=== PATIENT | female | born 1985 | race American Indian/Alaskan Native ===

== ENCOUNTER 2021-01-14 16:41 | Inpatient (IN) | payer BC, OTHER ==
[~2021-01-14] VITALS: Ht 165.1 cm; Wt 129.2 kg
[~2021-01-14 16:41] MED LIST: AMBIEN5 MG PO; CEPHALEXIN500 MG PO; CYCLOBENZAPRINE10 MG PO; PROVENTIL HFA6.7 GM INH; VITAFOL-OB+DHA1 EACH PO; ZOFRAN ODT4 MG PO
--- OUTSIDE RECORDS SUMMARY | 2021-01-14 16:44 | XMS ---
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 Issac has no Care Guidelines for this patient. Abelardo VISIT COUNT (12 MO.) 1 [facility] TOTAL 1 NOTE: Visits indicate total known visits. ED/UCC VISIT TRACKING (12 MO.) 01/14/2021 16:42 [facility] TYPE: Emergency COMPLAINT: - VOMITING,DIARRHEA,WEAKNESS INPATIENT VISIT TRACKING (12 MO.) No inpatient visits to display in this time frame [email or web address]
[2021-01-14] MEDS ORDERED: FLUTICASONE PRO16 GM NAS (18:38)
[2021-01-14] MEDS ORDERED: LIDOCAINE1 EACH TOP (18:38)
[2021-01-15] MEDS ORDERED: PROAIR HFA8.5 GM INH (09:36)
[2021-01-16] MEDS ORDERED: CLARITIN10 MG PO (10:07)
[2021-01-16] MEDS ORDERED: SUDOGEST60 MG PO (10:07)
[2021-01-20] MEDS ORDERED: CEFIXIME400 MG PO (13:08)
[2021-01-20] MEDS ORDERED: HYDROCODON-ACE1 EA10 PO (13:15)
== END 2021-01-20 14:45 | disposition home or self-care (01) | DRG 871 ==
LOC: ED 16:41 → CCU 22:43 → MS 01-17 12:50
PROVIDERS: ADMIT Internal Medicine; ATTEND Internal Medicine
DX: A41.51 Sepsis due to Escherichia coli [E. coli] (principal); K72.00 Acute and subacute hepatic failure without coma; N17.9 Acute kidney failure, unspecified; Z68.42 Body mass index [BMI] 45.0-49.9, adult; Z20.822 Contact with and (suspected) exposure to COVID-19; R65.20 Severe sepsis without septic shock; E66.01 Morbid (severe) obesity due to excess calories; N30.90 Cystitis, unspecified without hematuria; Z88.8 Allergy status to other drugs, medicaments and biological substances; Z79.899 Other long term (current) drug therapy
CPT/HCPCS: 71045; 74176; 80053; 81001; 82570; 83605; 83735; 84300; 84703; 85007; 85025; 87040; 87088; 94640; 94667; 94668; 94760; 96374; 97110; 97116; 97161; 99285-25; C9803; J0696; J0780; J1650; J2405; J2550; J7121; U0003

== ENCOUNTER 2021-08-27 11:10 | Emergency (ER) | payer BC, OTHER ==
[~2021-08-27] VITALS: Ht 165.1 cm; Wt 132.4 kg
[~2021-08-27 11:10] MED LIST changes: +CEFIXIME400 MG PO; +CLARITIN10 MG PO; +FLUTICASONE PRO16 GM NAS; +HYDROCODON-ACE1 EA10 PO; +LIDOCAINE1 EACH TOP; +PROAIR HFA8.5 GM INH; +SUDOGEST60 MG PO
--- OUTSIDE RECORDS SUMMARY | 2021-08-27 11:14 | XMS ---
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 PHONE: [phone] Issac has no Care Guidelines for this patient. Care History Medical/Surgical 01/15/2021 [facility] - PATIENT IS [facility] ELIGIBLE, \T\middot;\T\nbsp; PLEASE REFER PATIENT TO [facility] FOR NON EMERGENT MEDICAL NEEDS. \T\middot;\T\nbsp; [facility] CAN SEE PATIENTS SAME DAY FOR APTS IF PATIENT CALLS FIRST THING IN THE MORNING. E.D. VISIT COUNT (12 MO.) 2 [facility] TOTAL 2 NOTE: Visits indicate total known visits. ED/UCC VISIT TRACKING (12 MO.) 08/27/2021 11:[address] [facility] OR TYPE: Emergency COMPLAINT: - FLANK/ABD PAIN, BODY ACHES, NO APPETITE, SWEATS 01/14/2021 16:[address] [facility] OR TYPE: Emergency COMPLAINT: - VOMITING,DIARRHEA,WEAKNESS INPATIENT VISIT TRACKING (12 MO.) 01/14/2021 22:[address] 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 coli] - Sepsis due to Escherichia coli [E. 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
== END 2021-08-27 14:17 | disposition home or self-care (01) ==
LOC: ED 11:10
DX: B34.9 Viral infection, unspecified (principal); F17.200 Nicotine dependence, unspecified, uncomplicated; Z88.0 Allergy status to penicillin; Z79.899 Other long term (current) drug therapy; Z20.822 Contact with and (suspected) exposure to COVID-19
CPT/HCPCS: 36415; 80053; 81001; 83605; 84703; 85025; 99283; C9803; U0003

== ENCOUNTER 2024-01-27 07:42 | Day surgery (SDC) | payer BC, OTHER ==
[~2024-01-27] VITALS: Ht 165.1 cm; Wt 136.4 kg
[~2024-01-27 07:42] MED LIST changes: +CEFAZOLIN SODIUM 2 GM/20 ML SYR IV SCH; +COD LIVER OIL1 EAC2 PO; +CYMBALTA60 MG PO; +GABAPENTIN100 MG PO; +IBLOOD GLUCOSE TEST STRIP 1 EA TEST VI PRN; +KETOROLAC TROMETHAMINE 30 MG/ML VIAL ONE; +LACTATED RINGER'S 1,000 ML IV SCH; +LIDOCAINE HCL 1% 5 ML SDV INJ ONE
[2024-01-27] MEDS ORDERED: propofoL 200 MG/20 ML VIAL ONE ×2 (08:00→08:45)
[2024-01-27] MEDS ORDERED: MIDAZOLAM HCL 2 MG/2 ML VIAL ONE (08:00)
[2024-01-27] MEDS ORDERED: LIDOCAINE HCL 2% 5 ML SDV ONE (08:02)
[2024-01-27] MEDS ORDERED: fentaNYL citrate 100 MCG/2 ML VIAL ONE (08:02)
[2024-01-27 08:05] VITALS: BP 147/92
[2024-01-27] MEDS ORDERED: HYDROCODONE/ACETA 5/325 TAB PO PRN (08:15)
[2024-01-27] MEDS ORDERED: NALOXONE HCL 0.4 MG SYR IV PRN (08:30)
[2024-01-27] MEDS ORDERED: fentaNYL citrate 50 MCG/ML SDV IV PRN (08:30)
[2024-01-27] MEDS ORDERED: ondansetron HCL 4 MG/2 ML VIAL IV PRN (08:30)
[2024-01-27] MEDS ORDERED: IBLOOD GLUCOSE TEST STRIP 1 EA TEST VI PRN (08:30)
[2024-01-27] MEDS ORDERED: KETOROLAC TROMETHAMINE 30 MG/ML VIAL ONE (08:45)
[2024-01-27] MEDS ORDERED: DEXAMETHASONE SOD PHOS 4 MG/ML VIAL ONE (08:45)
[2024-01-27] MEDS ORDERED: ondansetron HCL 4 MG/2 ML VIAL ONE (08:45)
[2024-01-27] MEDS ORDERED: ACETAMINOPHEN 1,000 MG/100 ML VIAL ONE (08:49)
[2024-01-27] MEDS ORDERED: HYDROCODON-ACE1 EA10 PO (09:12)
[2024-01-27] MEDS ORDERED: CELECOXIB200 MG PO (09:12)
[2024-01-27 09:50] VITALS: BP 148/96
[2024-01-27 10:51] VITALS: BP 148/71
[2024-01-27] MEDS ORDERED: CELECOXIB 200 MG CAP PO SCH (17:00)
--- NOTE | 2024-01-30 06:59 | OR ---
[facility] [address] [place], [place] [address] Signed DATE OF OPERATION: 01/27/2024 SURGEON: Manda Paul MD PREOPERATIVE DIAGNOSIS: Medial meniscus tear, right knee. POSTOPERATIVE DIAGNOSIS: Medial meniscus tear, right knee. PROCEDURE PERFORMED: Right knee arthroscopy with partial and medial meniscectomy. 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 ANESTHESIA: General. BLOOD LOSS: Minimal. BRIEF HISTORY: Trina is a 38-year-old female with pain and locking in her knee and MRI evidence of medial meniscus tear. Risks and benefits of operative treatment were discussed with her and she elected to proceed. Once consent was obtained, she was taken to the operating room. After adequate anesthesia, she was placed on the operating room table. The left leg was flexed, abducted and externally rotated on a well-padded leg banerjee. The right was placed in well-padded proximal thigh leg banerjee and prepped and draped in a standard sterile fashion. Portal sites were injected with 0.25% Marcaine with epinephrine. Standard inferolateral and superolateral portals were made and the scope was introduced in the knee. ARTHROSCOPIC FINDINGS: [id number] synovitis was noted throughout the knee, particularly medially. 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 Medial and lateral gutters were clear, but there were large osteophytes. ACL and PCL were intact. Lateral compartment was intact with some minor fraying of the meniscus free edge. The medial compartment showed chondromalacia of the medial femoral condyle. Grade 2 changes on the tibial side. There was complex tear of the posteromedial meniscus. Electronically Signed By: MANDA PAUL MD 01/30/24 0659 PATIENT NAME: TRINA LORA OPERATIVE REPORT DATE OF : 85 REPORT #: [id number] PHYSICIAN: MANDA PAUL MD PCP: TOBI SANTORO FRANCHISE CONSULTANT-BC REPORT IS CONFIDENTIAL AND NOT TO BE RELEASED WITHOUT AUTHORIZATION [facility] [address] [place], [place] [address] Signed DESCRIPTION OF OPERATION: Standard inferomedial portal was made after localization using a spinal needle. The straight biter was then used to trim the meniscus tear back to a stable rim. This was then feathered and smoothed using the shaver. All debris was evacuated. The free edge of the lateral meniscus was trimmed with a shaver just to allow visualization. There were no unstable tears. The scope was then withdrawn. Portals were closed with 3-0 nylon and the knee was injected with 60 mg of Toradol. Wounds were dressed with Adaptic, ABD, and Juarez wrap. She tolerated the procedure well. All sponge, needle, and instrument counts were correct. Manda Paul MD BA/MAIKL /[id number] Copies: ~ Electronically Signed By: MANDA PAUL MD 01/30/24 0659 PATIENT NAME: TRINA LORA OPERATIVE REPORT DATE OF : [birth year] REPORT #: [id number] PHYSICIAN: MANDA PAUL MD PCP: TOBI SANTOROP-BC REPORT IS CONFIDENTIAL AND NOT TO BE RELEASED WITHOUT AUTHORIZATION
== END 2024-01-27 11:15 | disposition home or self-care (01) ==
LOC: DS 07:42
PROVIDERS: ATTEND Specialist
PROC: 0SBC4ZZ Excision of Right Knee Joint, Percutaneous Endoscopic Approach (ICD-10-PCS; principal; 2024-01-27 09:35)
DX: S83.231A Complex tear of medial meniscus, current injury, right knee, initial encounter (principal); M22.41 Chondromalacia patellae, right knee; Z88.0 Allergy status to penicillin; Z88.1 Allergy status to other antibiotic agents; Z87.891 Personal history of nicotine dependence; X58.XXXA Exposure to other specified factors, initial encounter
CPT/HCPCS: 84703; J0131; J0690; J1100; J1885; J2001; J2250; J2405; J2704; J3010; J7121

== ENCOUNTER 2024-12-09 10:52 | Emergency (ER) | payer BC, OTHER ==
[~2024-12-09] VITALS: Ht 162.6 cm; Wt 128.0 kg
[~2024-12-09 10:52] MED LIST changes: -CEFAZOLIN SODIUM 2 GM/20 ML SYR IV SCH; +CELECOXIB200 MG PO; -IBLOOD GLUCOSE TEST STRIP 1 EA TEST VI PRN; -KETOROLAC TROMETHAMINE 30 MG/ML VIAL ONE; -LACTATED RINGER'S 1,000 ML IV SCH; -LIDOCAINE HCL 1% 5 ML SDV INJ ONE
[2024-12-09 11:06] LABS: BASOPHILS 0.7 % (0.1-1.2); EOSINOPHILS 6.6 % (0.7-5.8); HEMATOCRIT 40.3 % (34.1-44.9); HEMOGLOBIN 13.6 g/dL (11.2-15.7); LYMPHOCYTES 24.6 % (19.3-51.7); MCHC 33.7 g/dL (32.2-35.5); MCV 88.8 fL (79.4-94.8); MONOCYTES 6.4 % (4.7-12.5); NEUTROPHILS 61.3 % (34.0-71.1); PLATELET COUNT 362 K/uL (182-369); RBC 4.54 M/uL (3.93-5.22)
[2024-12-09 11:17] LABS: PROTIME 12.8 Sec (11.2-14.2)
[2024-12-09 11:31] LABS: ALBUMIN 3.8 g/dL (3.4-5.0); ALBUMIN/GLOBULIN RATIO 1.19 (1.1-2.4); ANION GAP 12.1 (7-21); BILIRUBIN, TOTAL 0.5 mg/dL (0.2-1.0); BUN/CREATININE RATIO 17.17 (6.0-28.6); CALCIUM 8.7 mg/dL (8.5-10.1); CREATININE, SERUM 0.99 mg/dL (0.55-1.02); POTASSIUM 3.1 mmol/L (3.5-5.1); TSH, 3RD GENERATION 1.628 uIU/mL (0.358-3.740)
[2024-12-09 11:36] LABS: BILIRUBIN, URINE NEGATIVE (negative); BLOOD/HGB, URINE NEGATIVE (Negative); KETONE, URINE NEGATIVE (Negative); LEUK ESTERASE, URINE NEGATIVE (negative); NITRITE, URINE NEGATIVE (negative)
[2024-12-09 11:50] LABS: AMPHETAMINES, URINE NEGATIVE (NEGATIVE); BARBITURATES, URINE NEGATIVE (NEGATIVE); BENZODIAZEPINE, URINE NEGATIVE (NEGATIVE); BUPRENORPHINE, URINE NEGATIVE (NEGATIVE); CANNABINOID, URINE POSITIVE (NEGATIVE); COCAINE, URINE NEGATIVE (NEGATIVE); ECSTASY, URINE NEGATIVE (NEGATIVE); FENTANYL, URINE NEGATIVE (NEGATIVE); METHADONE, URINE NEGATIVE (NEGATIVE); OPIATES, URINE NEGATIVE (NEGATIVE); OXYCODONE, URINE NEGATIVE (NEGATIVE); PHENCYCLIDINE, URINE NEGATIVE (NEGATIVE)
[2024-12-09] MEDS ORDERED: ALBUTEROL/IPRATROPIUM 3 ML NEB INH ONE ×2 (14:45→19:30)
[2024-12-09 14:58] LABS: PH, VENOUS 7.335 (7.31-7.41)
[2024-12-09 19:40] VITALS: BP 117/68
--- NOTE | 2024-12-13 12:52 | EKG ---
[facility] [address] [facility] [place], [place] [address] Signed Normal sinus rhythm Normal ECG No previous ECGs available Confirmed by Lang Jacobo MD ([id number]) on 12/13/2024 12:52:12 PM Electronically Signed By: LANG JACOBO MD 12/13/24 1252 PATIENT NAME: TRINA LORA Electrocardiogram DATE OF : 85 PHYSICIAN: LANG JACOBO MD REPORT #: [id number] REPORT IS CONFIDENTIAL AND NOT TO BE RELEASED WITHOUT AUTHORIZATION
== END 2024-12-09 19:40 | disposition home or self-care (01) ==
LOC: ED 10:52 → EDBD 10:53 → ED 19:40
PROVIDERS: Emergency Medicine
DX: F10.129 Alcohol abuse with intoxication, unspecified (principal); R41.82 Altered mental status, unspecified
CPT/HCPCS: 36415; 51701; 70450; 70496; 70498; 71045; 72125; 80053; 80307; 81003; 82140; 82803; 83605; 84443; 85025; 85610; 85730; 87040; 87077; 87186; 93005; 93010; 94640; 94799; 99285-25; G0480; Q9967